=== PATIENT | male | born 1960 | race Caucasian/White ===

== ENCOUNTER → 2018-01-24 | Outpatient (CLI) | payer OTHER ==
[~2018-01-24] MED LIST: ASPIR 8181 MG PO; BENADRYL25 MG PO; CO Q-10100 MG PO; COZAAR 50 MG TA50 M2 PO; FLOMAX0.4 MG PO; HYDROXYZINE HCL25 M1 PO; LIORESAL 10 MG10 MG PO; SIMVASTATIN40 MG PO
--- NOTE | ~2018-01-24 | 2DMMODE ---
[facility] [place] [address] 2 D/M-MODE ECHOCARDIOGRAM Name: OMIDBERTA Gosia Room #: [facility] HE[facility] SERVICESFerdinandFerdinand#: [id number] Admission: 01/24/18 Attend Phys: Dipak Escobar, Discharge: Date of : 62 Date of Service: 01/24/18 1742 Report #: [id number] THIS REPORT FOR: //name// APPROVED REPORT Study performed: 01/24/2018 08:32:04 EXAM: Comprehensive 2D, Doppler, and color-flow Echocardiogram Patient Location: Out-Patient Status: routine BSA: 2.45 HR: 85 bpm BP: 139/82 mmHg Rhythm: NSR Other Information Study Quality: Adequate Technically limited study due to MORBID OBESITY. Indications CAD, Pre Op. Hx: HLP, current tob abuse Echo Enhancing Agent Indication: Endocardial border delineation Agent(s) / Amount(s) Used: Optison 5 cc 2D Dimensions RVDd: 38.54 mm LVEF(%): 52.63 (>50%) IVSd: 10.76 (7-11mm) LVOT Diam: 22.53 (18-24mm) LVDd: 58.86 mm PWd: 10.89 (7-11mm) Ascending Ao: 37.14 (22-36mm) LVDs: 42.68 (25-40mm) Aortic Root: 35.71 mm Louis's LVEF: 52.63 % Volumes Left Atrial Volume (Systole) Single Plane 4CH: 47.85 mL Single Plane 2CH: 54.91 mL LA ESV Index: 23.00 mL/m2 Aortic Valve AoV Peak Hung.: 1.32 m/s AO Peak Gr.: 6.95 mmHg LVOT Max P.07 mmHg LVOT Max V: 1.01 m/s [facility] [place] [address] 2 D/M-MODE ECHOCARDIOGRAM Name: BERTA ANNE Room #: [facility] PRISCILA Acevedo#: [id number] Admission: 01/24/18 Attend Phys: Dipak Escobar, Discharge: Date of : 62 Date of Service: 01/24/18 1742 Report #: [id number] PERLA Vmax: 3.05 cm2 Mitral Valve E/A Ratio: 1.2 MV Decel. Time: 180.42 ms MV E Max Hung.: 0.92 m/s MV A Hung.: 0.75 m/s MV PHT: 52.32 ms IVRT: 62.28 ms Pulmonary Valve PV Peak Hung.: 1.16 m/s PV Peak Gr.: 5.43 mmHg Pulmonary Vein P Vein S: 0.74 m/s P Vein D: 0.71 m/s P Vein S/D Ratio: 1.04 Tricuspid Valve RAP Estimate: 5.00 mmHg Left Ventricle Left ventricle is mildly dilated. There is normal LV segmental wall motion. There is normal left ventricular wall thickness. Left ventricular systolic function is normal. LVEF is 55-60%. Moderate diastolic dysfunction is present (pseudonormal filling). Right Ventricle The right ventricle is normal size. The right ventricular systolic function is normal. Atria The left atrium size is normal. The right atrium size is normal. Aortic Valve The aortic valve is normal in structure. No aortic regurgitation is present. There is no aortic valvular stenosis. Mitral Valve The mitral valve is normal in structure. Trace mitral regurgitation. Tricuspid Valve The tricuspid valve is normal in structure. There is no tricuspid valve regurgitation noted. Unable to assess PA pressure. [facility] [address] [place] [address] 2 D/M-MODE ECHOCARDIOGRAM Name: BERTA ANNE Room #: [facility] Kristina#: [id number] Admission: 01/24/18 Attend Phys: Dipak Escobar, Discharge: Date of : 62 Date of Service: 01/24/18 1742 Report #: [id number] Pulmonic Valve The pulmonary valve is normal in structure. Trace pulmonic regurgitation. Great Vessels The aortic root is normal in size. The ascending aorta is normal in size. IVC is normal in size and collapses >50% with inspiration. Pericardium There is no pericardial effusion. <Conclusion> Left ventricle is mildly dilated. LVEF is 55-60%. Moderate diastolic dysfunction is present (pseudonormal filling). The right ventricle is normal size. The left atrium size is normal. There is no aortic valvular stenosis. Trace mitral regurgitation. There is no tricuspid valve regurgitation noted. Unable to assess PA pressure. The aortic root is normal in size. There is no pericardial effusion. <ELECTRONICALLY SIGNED> By: Dipak Escobar MD, FACC 01/24/181741 41 [id number] Dipak Escobar MD, FACC /INF
== END ==
LOC: CV 08:15
DX: Z01.818 Encounter for other preprocedural examination (principal); I25.10 Atherosclerotic heart disease of native coronary artery without angina pectoris; E78.5 Hyperlipidemia, unspecified